=== PATIENT | female | born 1995 | race Caucasian/White ===

== ENCOUNTER 2018-05-13 19:01 | Emergency (ER) | payer OTHER ==
[2018-05-13] MEDS: LEVETIRACETAM 1000 MG (PMX) 100 ML IVPB (19:24)
[2018-05-13] MEDS: SOD CHLORIDE 0.9% 1,000 ML IV (19:33)
[2018-05-13] MEDS: ONDANSETRON 4 MG INJ IV ×2 (19:35→19:46)
[2018-05-13] MEDS: ACETAMINOPHEN 500 MG TAB PO (20:58)
[2018-05-13 21:02] LABS: URINE BLOOD (Dip) POC Negative (NEGATIVE); URINE GLUCOSE (Dip) POC Negative (NEGATIVE); URINE KETONES (Dip) POC Trace (NEGATIVE); URINE LEUKOCYTE EST (Dip) POC Negative (NEGATIVE); URINE NITRITE (Dip) POC Negative (NEGATIVE); URINE TOTAL PROTEIN POC 1+ (NEGATIVE)
[2018-05-13 21:02] LABS: URINE PH (Dip) POC 5.5 (5.0-8.5)
[2018-05-13 21:41] LABS: ADD UMIC YES; UR ASCORBIC ACID 40 mg/dL (NEGATIVE); UR BILIRUBIN (Dip) NEGATIVE (NEGATIVE); UR BLOOD (Dip) NEGATIVE (NEGATIVE); UR CLARITY CLEAR (CLEAR); UR COLOR YELLOW (YELLOW); UR GLUCOSE (Dip) NEGATIVE (NEGATIVE); UR KETONES (Dip) TRACE mg/dL (NEGATIVE); UR LEUKOCYTE ESTERASE (Dip) NEGATIVE Leu/ul (NEGATIVE); UR MUCUS FEW /HPF (NONE SEEN); UR NITRITE (Dip) NEGATIVE (NEGATIVE); UR RBC 2 /HPF (0-5); UR SPECIFIC GRAVITY (Dip) 1.017 (1.003-1.030); UR TOTAL PROTEIN (Dip) 1+ mg/dl (NEGATIVE); UR UROBILINOGEN (Dip) 1+ mg/dL (NEGATIVE); UR WBC 6 /HPF (0-5)
[2018-05-13] MEDS: LEVETIRACETAM 500 MG TAB PO (22:19)
== END 2018-05-13 22:28 | disposition home or self-care (01) ==
LOC: E/R 19:01
DX: G40.909 Epilepsy, unspecified, not intractable, without status epilepticus (principal); N39.0 Urinary tract infection, site not specified; R40.2142 Coma scale, eyes open, spontaneous, at arrival to emergency department; R40.2362 Coma scale, best motor response, obeys commands, at arrival to emergency department; R40.2252 Coma scale, best verbal response, oriented, at arrival to emergency department
CPT/HCPCS: 81001; 81003; 81025; 82962; 93005; 96374; 96375; 99284-25